=== PATIENT | female | born 1970 | race Caucasian/White ===

== ENCOUNTER 2017-03-24 23:43 | Emergency (ER) | payer SELFPAY ==
[~2017-03-24] VITALS: Ht 142.2 cm; Wt 50.0 kg
[2017-03-25 01:53] VITALS: BP 119/69
== END 2017-03-25 02:59 | disposition home or self-care (01) ==
LOC: EMS 23:45
DX: F41.9 Anxiety disorder, unspecified (principal)
CPT/HCPCS: 93005; 99283